=== PATIENT | female | born 1985 | race Caucasian/White ===

== ENCOUNTER → 2020-03-21 12:51 | Outpatient (CLI) | payer BC, SELFPAY ==
--- NOTE | ~2020-03-21 | US_ITS ---
EXAMINATION: US OB transvaginal EXAM DATE: 03/21/2020 13:30 INDICATION: History of miscarriages, irregular periods. 10/27/2012. TECHNIQUE: Pelvic obstetrical transvaginal sonogram was performed by a technologist. There are mult iple grayscale and Doppler images available for interpretation. There are no earlier studies of this gestation for comparison. FINDINGS: Uterus measures 10.1 x 5.6 x 5.6 cm. There is intrauterine gestation sac. pole with heart rate confirmed at 117 beats per minute. The 3 mm crown-rump length corresponds to estimated g estational age by ultrasound of 5 weeks 6 days. Yolk sac is identified. There is a tiny hypoechoic subchorionic region measuring 1 cm in diameter by 4 mm in thickness, right adnexal serpiginous tubu lar structure probably some dilated adnexal veins, could indicate pelvic congestion syndrome. The ova kevin are normal in size and morphology. IMPRESSION: Early live intrauterine gestation with small subchorionic hemorrhage. Reviewed, dictated and finalized at location B. IMPRESSION: Early live intrauterine gestation with small subchorionic hemorrhag e.
== END ==
PROVIDERS: Visit Provider Obstetrics & Gynecology Gynecology
DX: O26.21 Pregnancy care for patient with recurrent pregnancy loss, first trimester (principal); Z3A.00 Weeks of gestation of pregnancy not specified
CPT/HCPCS: 76817